=== PATIENT | female | born 1975 | race Caucasian/White ===

== ENCOUNTER 2016-08-20 09:06 | Emergency (ER) | payer BC ==
[2016-08-20 10:06] VITALS: BP 120/75
--- NOTE | 2016-08-20 11:01 | UC ---
Throat Pain/Nasal Jose HPI - HPI Summary HPI Summary: complaint of nasal congestion that started 2 weeks ago 4-5 days ago started to have intermittent fevr 100.5 highest temp started to have a productive cough- thick green drainage taking sudafed and mucinex with some relief coughing so hard it is difficult to sleep - robitussin for cough without much relief feels pressure in her face, ears feel full denies sore throat, shortness of breath, muscle aches - History of Current Complaint Chief Complaint: UCGeneralIllness Stated Complaint: CONGESTION/COUGH Time Seen by Provider: 08/20/16 10:53 Hx Obtained From: Patient Hx Last Menstrual Period: 06/28/16 - Allergies/Home Medications Allergies/Adverse Reactions: Allergies Allergy/AdvReac Type Severity Reaction Status Date / Time Nafcillin Allergy Severe Hives Verified 01/26/15 19:27 PMH/Surg Hx/FS Hx/Imm Hx Previously Healthy: Yes Endocrine History Of: Reports: Thyroid Disease Cardiovascular History Of: Denies: Cardiac Disorders Respiratory History Of: Denies: COPD GI/ History Of: Denies: Gastroesophageal Reflux Neurological History Of: Denies: TIA Cancer History Of: Denies: Lung Cancer - Surgical History Surgical History: Yes Surgery Procedure, Year, and Place: KNEE, T&A, C SECTIONS, SUB DURAL HEMATOMA, tubal ligation - Family History Known Family History: Positive: None Negative: Cardiac Disease, Hypertension, Diabetes - Social History Occupation: Employed Full-time Lives: With Family Alcohol Use: None Substance Use Type: None Smoking Status (MU): Heavy Every Day Tobacco Smoker Type: Cigarettes Amount Used/How Often: 1/2 pack daily Length of Time of Smoking/Using Tobacco: since age 12 yo Have You Smoked in the Last Year: Yes Household Exposure Type: Cigarettes Cessation Counseling: Patient Advised to Stop Review of Systems Constitutional: Fever Skin: Negative Eyes: Negative ENT: Ear Ache, Nasal Discharge Respiratory: Cough Cardiovascular: Negative Gastrointestinal: Negative Genitourinary: Negative Motor: Negative Neurovascular: Negative Musculoskeletal: Negative Neurological: Negative Psychological: Negative All Other Systems Reviewed And Are Negative: Yes Physical Exam Triage Information Reviewed: Yes Appearance: Well-Appearing, No Pain Distress, Well-Nourished Vital Signs: Initial Vital Signs Temp 99.2 F 08/20/16 09:51 Pulse 75 08/20/16 09:51 Resp 16 08/20/16 09:51 BP 120/75 08/20/16 09:51 Pulse Ox 100 08/20/16 09:51 Vital Signs Reviewed: Yes Eyes: Positive: Conjunctiva Clear ENT: Positive: Pharyngeal erythema, Nasal congestion, Nasal drainage, TM bulging , Other: - maxillary sinus tenderness. Negative: TM red Neck: Positive: No Lymphadenopathy Respiratory: Positive: Lungs clear, Normal breath sounds, No respiratory distress Cardiovascular: Positive: RRR, No Murmur, Pulses Normal Abdomen Description: Positive: Nontender, Soft Bowel Sounds: Positive: Present Musculoskeletal: Positive: No Edema Neurological: Positive: Alert Psychological Exam: Normal Skin Exam: Normal Throat Pain/Nasal Course/Dx - Course Course Of Treatment: exam completed. treat for sinusitis -length of illness over 2 weeks - Differential Dx/Diagnosis Differential Diagnosis/HQI/PQRI: Sinusitis, URI, Other - bronichitis Provider Diagnoses: sinusitis Discharge - Discharge Plan Condition: Stable Disposition: HOME Prescriptions: Amoxicillin/Clavulanate TAB* [Augmentin TAB 875*] 875 mg PO BID #20 tab Benzonatate CAP* [Tessalon CAP*] 100 mg PO TID #30 cap Patient Education Materials: Sinusitis (ED) Forms: *Work Release Referrals: FIDENCIO Reed [Primary Care Provider] - Additional Instructions: SINUSITIS What is Sinusitis? Sinusitis is inflammation or infection of the lining of the sinuses behind the bones in your cheeks or forehead. Sinusitis may occur following a common cold, flu, or other infection; allergies; a tooth infection that spreads to the sinuses; swimming in contaminated water; pressure changes in airplanes at high altitudes; violent sneezing or nose blowing or smoking or breathing other peoples smoke. Symptoms Might Include: Nasal Congestion Sneezing Watery eyes, eye irritation, or eye itching Headaches Pressure in the cheeks Wheezing Trouble smelling Sore throat and coughing may occur Treatment Recommendations: Take medicines as prescribed until completely gone. Drink plenty of fluids. Use saline nose spray to thin the mucous and help the sinuses drain. Use a vaporizer or humidifier. Apply warm compresses to the face or forehead several times a day for 10 to 20 minutes. Call Your Doctor or Return Here IF: Your pain increases during treatment. You develop a high temperature. You develop unusual swelling around the eyes. You have difficulty with your vision. You develop a severe headache, earache, or toothache. You develop increased fever or fever that does not respond to medication such as Tylenol?. You have difficulty breathing or catching your breath. You begin to have any other new symptoms that worry you.
== END 2016-08-20 11:24 | disposition home or self-care (01) ==
LOC: UCCORT 09:06
DX: J32.9 Chronic sinusitis, unspecified (principal); F17.210 Nicotine dependence, cigarettes, uncomplicated; Z88.3 Allergy status to other anti-infective agents
CPT/HCPCS: 99212; G0463

== ENCOUNTER 2017-02-18 21:17 | Emergency (ER) | payer BC ==
[2017-02-18 21:55] VITALS: BP 128/69
[2017-02-18] MEDS ORDERED: Cephalexin CAP* 500 MG PO ONE (22:04)
[2017-02-18] MEDS ORDERED: Phenazopyridine TAB* 100 MG PO ONE (22:10)
--- NOTE | 2017-02-18 22:13 | UC ---
Complaint Female HPI - HPI Summary HPI Summary: patient has had 2 days of dysuria, and lower abdominal pressure. denies bakc pain or fever. - History Of Current Complaint Chief Complaint: UCGU Stated Complaint: URINARY Time Seen by Provider: 02/18/17 21:40 Hx Obtained From: Patient Hx Last Menstrual Period: 1 week ago ?: No Onset/Duration: Sudden Onset, Lasting Days Timing: Constant Severity Initially: Mild Severity Currently: Moderate Character: Burning Aggravating Factor(s): Urination Associated Signs And Symptoms: Positive: Negative - Risk Factors Ectopic Risk Factor: Negative - Allergies/Home Medications Allergies/Adverse Reactions: Allergies Allergy/AdvReac Type Severity Reaction Status Date / Time Nafcillin Allergy Severe Hives Verified 02/18/17 21:49 PMH/Surg Hx/FS Hx/Imm Hx Previously Healthy: Yes - Surgical History Surgical History: Yes Surgery Procedure, Year, and Place: KNEE, T&A, C SECTIONS, SUB DURAL HEMATOMA, tubal ligation - Family History Known Family History: Positive: None Negative: Cardiac Disease, Hypertension, Diabetes - Social History Alcohol Use: None Substance Use Type: Excessive Caffeine Smoking Status (MU): Heavy Every Day Tobacco Smoker Type: Cigarettes Amount Used/How Often: 1/2 pack daily Length of Time of Smoking/Using Tobacco: since age 12 yo Have You Smoked in the Last Year: Yes Household Exposure Type: Cigarettes Review of Systems Constitutional: Negative Skin: Negative Eyes: Negative ENT: Negative Respiratory: Negative Cardiovascular: Negative Gastrointestinal: Negative Genitourinary: Dysuria, Frequency, Urgency Motor: Negative Neurovascular: Negative Musculoskeletal: Negative Neurological: Negative Psychological: Negative All Other Systems Reviewed And Are Negative: Yes Physical Exam Triage Information Reviewed: Yes Appearance: Well-Appearing, Well-Nourished, Pain Distress Vital Signs: Initial Vital Signs Temp 98.9 F 02/18/17 21:38 Pulse 92 02/18/17 21:38 Resp 18 02/18/17 21:38 BP 128/69 02/18/17 21:38 Vital Signs Reviewed: Yes Eye Exam: Normal Eyes: Positive: Conjunctiva Clear ENT Exam: Normal ENT: Positive: Hearing grossly normal, Pharynx normal, TMs normal Neck exam: Normal Respiratory Exam: Normal Respiratory: Positive: Chest non-tender, Lungs clear, Normal breath sounds Cardiovascular Exam: Normal Cardiovascular: Positive: RRR, No Murmur, Pulses Normal Abdominal Exam: Normal Abdomen Description: Positive: Nontender, No Organomegaly, Soft, CVA Tenderness (L) - neg Bowel Sounds: Positive: Present Musculoskeletal Exam: Normal Musculoskeletal: Positive: Strength Intact, ROM Intact, No Edema Neurological Exam: Normal Neurological: Positive: Alert, Muscle Tone Normal Psychological Exam: Normal Skin Exam: Normal Complaint Female Dx - Course Course Of Treatment: hx obtained, exam performed, meds reviewed, treated for UTI - Differential Dx/Diagnosis Differential Diagnosis/HQI/PQRI: Sexually Transmitted Disease, Ureteral Stone, Urinary Tract Infection Provider Diagnoses: UTI Discharge - Discharge Plan Condition: Stable Disposition: HOME Prescriptions: Cephalexin CAP* [Keflex CAP*] 500 mg PO BID #14 cap Phenazopyridine TAB* [Pyridium 100 mg TAB*] 100 mg PO TID #3 tab Patient Education Materials: Urinary Tract Infection in Women (ED) Additional Instructions: 1. take the medication as prescribed. 2. Increase fluid intake and get plenty of rest.
== END 2017-02-18 22:34 | disposition home or self-care (01) ==
LOC: UCCORT 21:17
DX: N39.0 Urinary tract infection, site not specified (principal); F17.210 Nicotine dependence, cigarettes, uncomplicated
CPT/HCPCS: 81003; 87086; 99212; A9270-GY; G0463

== ENCOUNTER 2017-06-26 08:33 | Emergency (ER) | payer BC ==
[2017-06-26 08:57] VITALS: BP 124/69
== END 2017-06-26 09:39 | disposition left against medical advice (07) ==
LOC: UCEAST 08:33
DX: R06.89 Other abnormalities of breathing (principal); Z53.21 Procedure and treatment not carried out due to patient leaving prior to being seen by health care provider

== ENCOUNTER 2017-07-30 16:15 | Emergency (ER) | payer BC ==
[2017-07-30 16:23] VITALS: BP 116/66
--- NOTE | 2017-07-30 16:30 | UC ---
Respiratory Complaint HPI - HPI Summary HPI Summary: Pt presents with continued cough. She tells me that [place] [facility] she developed a cough and chest congestion. She tried conservative measures for a few weeks with no relief - went to the [facility] in [place] just before thanksving and was told she had bronchitis. At that time she was rx'd albuterol, prednisone, and zpak. She reports good relief with these, but felt her symptoms never " fully went away". Over the last week her boyfriend has been sick with similar symptoms and over the last 3-4 days her cough has gotten worse and is now productive with yellow/thick white phlegm. She says that her temp at home has been around 100deg. She denies chills, ST, SOB, chest pain, abdominal pain, N/V/ D/C. She is still smoking - History of Current Complaint Chief Complaint: UCRespiratory Stated Complaint: cough, and chest congestion Time Seen by Provider: 07/30/17 16:30 Hx Obtained From: Patient Hx Last Menstrual Period: 06/28/16 Onset/Duration: Gradual Onset Timing: Constant Severity Initially: Mild Severity Currently: Mild Character: Cough: Productive - Allergies/Home Medications Allergies/Adverse Reactions: Allergies Allergy/AdvReac Type Severity Reaction Status Date / Time Nafcillin Allergy Severe Hives Verified 06/26/17 08:53 Home Medications: Home Medications Dextromethorphan-Guaifenesin [Mucinex Dm Maximum Streng 60-1200 mg] 1 tab PO [History] PMH/Surg Hx/FS Hx/Imm Hx Previously Healthy: Yes Endocrine History: Hypothyroidism - Surgical History Surgical History: Yes Surgery Procedure, Year, and Place: KNEE, T&A, C SECTIONS, SUB DURAL HEMATOMA, tubal ligation - Family History Known Family History: Positive: None Negative: Cardiac Disease, Hypertension, Diabetes - Social History Occupation: Employed Full-time Lives: With Family Alcohol Use: None Substance Use Type: None Smoking Status (MU): Heavy Every Day Tobacco Smoker Type: Cigarettes Amount Used/How Often: 1/2 pack daily Length of Time of Smoking/Using Tobacco: since age 12 yo Have You Smoked in the Last Year: Yes Household Exposure Type: Cigarettes Cessation Counseling: Counseled 3+Min - 10 Min Review of Systems Constitutional: Negative Skin: Negative Eyes: Negative ENT: Nasal Discharge, Sinus Congestion, Sinus Pain/Tenderness Respiratory: Cough Cardiovascular: Negative Gastrointestinal: Negative Neurological: Negative All Other Systems Reviewed And Are Negative: Yes Physical Exam Triage Information Reviewed: Yes Appearance: Well-Appearing, Well-Nourished Vital Signs: Initial Vital Signs Temp 98.3 F 07/30/17 16:19 Pulse 111 07/30/17 16:19 Resp 18 07/30/17 16:19 BP 116/66 07/30/17 16:19 Pulse Ox 100 07/30/17 16:19 Vital Signs Reviewed: Yes Eyes: Positive: Conjunctiva Clear. Negative: Conjunctiva Inflamed, Discharge ENT: Positive: Hearing grossly normal, Pharynx normal, Nasal congestion, TMs normal, Uvula midline. Negative: Pharyngeal erythema, Nasal drainage, TM bulging, TM dull, TM red, Tonsillar swelling, Tonsillar exudate, Muffled voice, Hoarse voice, Sinus tenderness Neck: Positive: Supple, Nontender, No Lymphadenopathy Respiratory: Positive: Chest non-tender, No respiratory distress, No accessory muscle use, Wheezing - Throughout. Negative: Crackles, Rhonchi Cardiovascular: Positive: RRR, No Murmur, Pulses Normal Neurological: Positive: Alert Psychological: Positive: Age Appropriate Behavior Skin: Negative: rashes UC Diagnostic Evaluation - Laboratory O2 Sat by Pulse Oximetry: 100 Respiratory Course/Dx - Course Course Of Treatment: CXR: Negative. Says he albuterol inhaler at home is almost empty. She has had tessalon in the past with no relief of her cough. I advised her to cut back on smoking. Will send rx for a new albuterol inhaler and a 5 day course of prednisone. No needs for antibiotics at this time - suspect viral bronchitis. - Differential Dx/Diagnosis Differential Diagnosis/HQI/PQRI: Asthma, Bronchitis, Exacerbation Of COPD, Influenza, Lower Resp Infection, Sinusitis Provider Diagnoses: Bronchitis Discharge - Discharge Plan Condition: Stable Disposition: HOME Prescriptions: Albuterol HFA INHALER* [Ventolin HFA Inhaler*] 1 - 2 puff INH Q6H PRN #1 mdi PRN Reason: Sob/Wheezing predniSONE TAB* [Deltasone TAB*] 40 mg PO DAILY #10 tab Patient Education Materials: Acute Bronchitis (ED) Referrals: FIDENCIO Reed [Primary Care Provider] - Additional Instructions: If you develop a fever, SOB, chest pain, new or worsening symptoms - please call your PCP or go to the ED. 1) Rest and drink plenty of fluids. 2) May continue to take Mucinex OTC twice a day.
--- NOTE | 2017-07-30 16:57 | RAD ---
INDICATION: Cough. COMPARISON: Comparison is made with a prior chest x-ray study from January 26, 2015. TECHNIQUE: Dual-energy PA and lateral views of the chest were obtained. FINDINGS: The heart is within normal limits in size. Mediastinal and hilar contours appear within normal limits. The lungs are slightly hyperinflated and clear. No pleural effusion is seen. IMPRESSION: NO EVIDENCE FOR ACTIVE CARDIOPULMONARY DISEASE.
== END 2017-07-30 17:08 | disposition home or self-care (01) ==
LOC: UCEAST 16:15
DX: J40 Bronchitis, not specified as acute or chronic (principal); Z72.0 Tobacco use
CPT/HCPCS: 71020; 99212; G0463

== ENCOUNTER 2018-03-27 07:01 | Emergency (ER) | payer SELFPAY ==
--- NOTE | 2018-03-27 07:16 | UC ---
Back Pain HPI - HPI Summary HPI Summary: 42 year old female with back pain . Lower back "felt like it went out" three days ago when getting up from her recliner. Pain somewhat "tolerable" with Aspercreme, ibuprofen, and hydrocodone (has taken three of her boyfriend's 5/ 325s). No pain at rest. Pain significantly aggravated by movement. Difficulty sleeping. Has noticed foul smelling urine and has nitrates and blood in [employer] at work. Denies any other symptoms. No trauma. No falls. No numbness in the legs. Pain 1/10 at rest and was 9/10 the other day when piking up milk. No previous back concerns. [ End ] - History of Current Complaint Stated Complaint: LOW BACK PAIN Time Seen by Provider: 03/27/18 07:14 Hx Obtained From: Patient Hx Last Menstrual Period: 06/28/16 Onset/Duration: Gradual Onset Timing: Constant Severity Initially: Moderate Severity Currently: Moderate Character: Spasmodic, Stiffness Aggravating Factor(s): Movement, Lifting, Bending Alleviating Factor(s): Rest - Risk Factors Cauda Equina Risk Factors: Negative Epidural Abscess Risk Factors: Fever - Allergies/Home Medications Allergies/Adverse Reactions: Allergies Allergy/AdvReac Type Severity Reaction Status Date / Time nafcillin Allergy Hives Verified 03/27/18 07:20 Home Medications: Home Medications HYDROcodone/ACETAMIN 5-325 MG* [[place] 5-325 TAB*] 1 tab PO SEE INSTRUCTIONS PRN 03/27/18 [History Confirmed 03/27/18] Ibuprofen TAB* [Advil TAB*] 600 mg PO Q6H PRN 03/27/18 [History Confirmed ] Trolamine Salicylate/Aloe Vera [Aspercreme/Aloe] 1 applic TOPICAL SEE INSTRUCTIONS PRN 03/27/18 [History Confirmed 03/27/18] Varenicline (NF) [Chantix 1 MG TAB (NF)] 1 mg PO DAILY 03/27/18 [History Confirmed 03/27/18] PMH/Surg Hx/FS Hx/Imm Hx Previously Healthy: Yes Endocrine History: Hypothyroidism - Surgical History Surgical History: Yes Surgery Procedure, Year, and Place: KNEE, T&A, C SECTIONS, SUB DURAL HEMATOMA, tubal ligation - Family History Known Family History: Positive: None Negative: Cardiac Disease, Hypertension, Diabetes - Social History Occupation: Employed Full-time Lives: With Family Alcohol Use: None Substance Use Type: None Smoking Status (MU): Heavy Every Day Tobacco Smoker Type: Cigarettes Amount Used/How Often: 1/2 pack daily Length of Time of Smoking/Using Tobacco: since age 12 yo Have You Smoked in the Last Year: Yes Household Exposure Type: Cigarettes Review of Systems Constitutional: Fever Skin: Rash Eyes: Blurred Vision ENT: Ear Ache Respiratory: Cough Cardiovascular: Chest Pain Gastrointestinal: Vomiting Genitourinary: Negative Motor: Decreased ROM Neurovascular: Negative Musculoskeletal: Decreased ROM Neurological: Negative Psychological: Negative Is Patient Immunocompromised?: No All Other Systems Reviewed And Are Negative: Yes Physical Exam Triage Information Reviewed: Yes Appearance: Well-Appearing, Well-Nourished, Pain Distress - mild to moderate Vital Signs Reviewed: Yes Eye Exam: Normal ENT Exam: Normal Dental Exam: Normal Neck exam: Normal Neck: Positive: 1 Respiratory Exam: Normal Cardiovascular Exam: Normal Abdominal Exam: Normal Musculoskeletal Exam: Normal Musculoskeletal: Positive: ROM Limited @, Other: - b/l paraspinal lumbar L3-4 tenderness to palpation. no sp tenderness . no step offs. (+) SLR b/l no foot drop. DTR's normal and brisk. no edema. strength 5/5. sensation WNL. skin normal. Neurological Exam: Normal Psychological Exam: Normal Skin Exam: Normal Back Pain Course/Dx - Course Course Of Treatment: no red flags. no numbness. rest. medrol. flexeril. no lifting > 10 lb until seen by PCP or Sx resolved. refer to Ortho if not improved. no indication for xray no trauma, numbness, pain only few days. go to ED if Sx worsen - Differential Dx/Diagnosis Differential Diagnosis/HQI/PQRI: Herniated Disc, Strain, Sprain Provider Diagnoses: Lumbar back strain Discharge - Sign-Out/Discharge Documenting (check all that apply): Patient Departure All imaging exams completed and their final reports reviewed: No Studies - Discharge Plan Condition: Good Disposition: HOME Prescriptions: Cyclobenzaprine TAB* [Flexeril 10 MG TAB*] 10 mg PO BID PRN #15 tab PRN Reason: Spasms methylPREDNISolone [Medrol Dosepak 4 MG*] 0 mg PO .SEE JAYLAN INSTRUCTION #1 tab Patient Education Materials: Low Back Strain (ED) Forms: *Work Release Referrals: Bill Gautam MD [Primary Care Provider] - 4 Days Eber Adkins MD [Medical Doctor] - If Needed - Billing Disposition and Condition Condition: GOOD Disposition: Home
[2018-03-27 07:25] VITALS: BP 133/84
== END 2018-03-27 08:23 | disposition home or self-care (01) ==
LOC: UCCORT 07:01
DX: S39.012A Strain of muscle, fascia and tendon of lower back, initial encounter (principal); X50.0XXA Overexertion from strenuous movement or load, initial encounter; Y93.89 Activity, other specified; Y92.008 Other place in unspecified non-institutional (private) residence as the place of occurrence of the external cause; F17.210 Nicotine dependence, cigarettes, uncomplicated; Z88.0 Allergy status to penicillin
CPT/HCPCS: 81003; 99212; G0463

== ENCOUNTER 2018-09-06 13:25 | Emergency (ER) | payer BC ==
[2018-09-06 13:50] VITALS: BP 126/79
[2018-09-06 14:09] LABS: Influenza A Molecular NEGATIVE (Negative); Influenza B Molecular NEGATIVE (Negative)
--- NOTE | 2018-09-06 14:19 | UC ---
FLU HPI - HPI Summary HPI Summary: Pt c/o sudden onset of cough fever chills nasal congestion st x 3 days. Pt has known exposure to flu. - History of Current Complaint Chief Complaint: UCRespiratory Stated Complaint: ST,CONGESTION,NO ENERGY Time Seen by Provider: 09/06/18 14:13 Hx Obtained From: Patient Hx Last Menstrual Period: october 2017 ?: No Onset/Duration: Sudden Onset, Lasting Days, Still Present Severity Currently: Mild Severity Initially: Moderate Pain Intensity: 5 Associated Signs & Symptoms: Positive: Myalgia, Cough, Sore Throat, Nasal Congestion Related Hx: Possible Flu/Infectious Exposure, Smoking - Risk Factors Influenza Risk Factors: Negative - Allergy/Home Medications Allergies/Adverse Reactions: Allergies Allergy/AdvReac Type Severity Reaction Status Date / Time nafcillin Allergy Hives Verified 09/06/18 13:47 PMH/Surg Hx/FS Hx/Imm Hx Previously Healthy: Yes - Surgical History Surgical History: Yes Surgery Procedure, Year, and Place: KNEE, T&A, C SECTIONS, SUB DURAL HEMATOMA, tubal ligation - Family History Known Family History: Positive: None Negative: Cardiac Disease, Hypertension, Diabetes - Social History Occupation: Employed Full-time Lives: With Family Alcohol Use: None Substance Use Type: None Smoking Status (MU): Heavy Every Day Tobacco Smoker Type: Cigarettes Amount Used/How Often: 1/2 pack daily Length of Time of Smoking/Using Tobacco: since age 12 yo Have You Smoked in the Last Year: Yes Household Exposure Type: Cigarettes Review of Systems All Other Systems Reviewed And Are Negative: Yes Constitutional: Positive: Fever, Chills, Fatigue Skin: Positive: Negative Eyes: Positive: Negative ENT: Positive: Sore Throat, Sinus Congestion Respiratory: Positive: Cough Cardiovascular: Positive: Negative Gastrointestinal: Positive: Negative Genitourinary: Positive: Negative Motor: Positive: Negative Neurovascular: Positive: Negative Musculoskeletal: Positive: Negative Neurological: Positive: Negative Psychological: Positive: Negative Is Patient Immunocompromised?: No Physical Exam Triage Information Reviewed: Yes Appearance: Ill-Appearing Vital Signs: Initial Vital Signs Temp 98.4 F 09/06/18 13:46 Pulse 85 09/06/18 13:46 Resp 15 09/06/18 13:46 BP 126/79 09/06/18 13:46 Pulse Ox 99 09/06/18 13:46 Vital Signs Reviewed: Yes Eye Exam: Normal ENT: Positive: Nasal congestion Dental Exam: Normal Neck exam: Normal Respiratory Exam: Normal Cardiovascular Exam: Normal Musculoskeletal Exam: Normal Neurological Exam: Normal Psychological Exam: Normal Skin Exam: Normal Flu Course/Dx - Differential Dx/Diagnosis Differential Diagnosis/HQI/PQRI: Influenza, Upper Respiratory Infection Provider Diagnosis: Viral syndrome Discharge - Sign-Out/Discharge Documenting (check all that apply): Patient Departure All imaging exams completed and their final reports reviewed: No Studies - Discharge Plan Condition: Stable Disposition: HOME Prescriptions: Albuterol HFA INHALER* [Ventolin HFA Inhaler*] 1 - 2 puff INH Q6H PRN #1 mdi PRN Reason: Sob/Wheezing Patient Education Materials: Viral Syndrome (ED), Wheezing (ED) Referrals: Bill Gautam MD [Primary Care Provider] - If Needed - Billing Disposition and Condition Condition: STABLE Disposition: Home - Attestation Statements Provider Attestation: I was available for consult. This patient was seen by the EVA. The patient was not presented to, seen by, or examined by me. EK
== END 2018-09-06 14:26 | disposition home or self-care (01) ==
LOC: UCCORT 13:25
DX: B34.9 Viral infection, unspecified (principal); R05 Cough; R09.81 Nasal congestion; M79.10 Myalgia, unspecified site; J02.9 Acute pharyngitis, unspecified; F17.210 Nicotine dependence, cigarettes, uncomplicated; Z20.828 Contact with and (suspected) exposure to other viral communicable diseases; Z88.0 Allergy status to penicillin
CPT/HCPCS: 99212; G0463